=== PATIENT | female | born 1960 | race Caucasian/White ===

== ENCOUNTER 2021-07-04 10:16 | Emergency (ER) | payer BC ==
[2021-07-04] MEDS: Amoxicillin/Clavulanate K 875-125 MG Tab PO ONE (10:38)
--- NOTE | 2021-07-04 10:50 | EDM.PDOC ---
ED HPI GENERAL MEDICAL PROBLEM - General Stated Complaint: R HAND SWELLING Time Seen by Provider: 07/04/21 10:20 Source of Information: Reports: Patient History Limitations: Reports: No Limitations - History of Present Illness INITIAL COMMENTS - FREE TEXT/NARRATIVE: Patient comes emergency department today with complaints of a cat bite to her right hand. Yesterday this patient's cat who is up-to-date on its immunizations as well as the patient's tetanus that is up-to-date bit her on the right hand and the base of the thumb region. She cleansed it immediately last night. Today when she woke up she noticed quite a bit of swelling and redness to her hand. She denies any paresthesias. She has no fever or chills. She has no change in the functionality of her right hand at the joints nor sensation to the right hand. Right Hand Pain Score (Numeric/FACES): 2 - Related Data Allergies Allergy/AdvReac Type Severity Reaction Status Date / Time No Known Allergies Allergy Verified 07/04/21 11:33 Home Meds: Home Meds Aspirin 81 mg PO DAILY 10/21/18 [History] Cetirizine [ZyrTEC] 10 mg PO DAILY 10/21/18 [History] Escitalopram [Lexapro] 10 mg PO DAILY 10/21/18 [History] Montelukast [Singulair] 10 mg PO DAILY 10/21/18 [History] amLODIPine Besylate/Benazepril [Lotrel 5-40 MG] 1 cap PO DAILY 10/21/18 [History] atorvaSTATin [Lipitor] 10 mg PO DAILY 10/21/18 [History] Amoxicillin/Clavulanate K [Augmentin 875-125 MG] 1 tab PO BID #16 tab 07/04/21 [Rx] Past Medical History - Past Health History Medical/Surgical History: Denies Medical/Surgical History HEENT History: Reports: Other (See Below) Other HEENT History: Allergies, seasonal. Cardiovascular History: Reports: High Cholesterol, Hypertension Psychiatric History: Reports: Depression - Past Surgical History Musculoskeletal Surgical History: Reports: Carpal Tunnel Other Musculoskeletal Surgeries/Procedures:: left wrist, carpal tunnel. ED ROS GENERAL - Review of Systems Review Of Systems: Comprehensive ROS is negative, except as noted in HPI. ED EXAM, SKIN/RASH Exam: See Below Exam Limited By: No Limitations General Appearance: Alert, WD/WN, No Apparent Distress Respiratory/Chest: No Respiratory Distress Cardiovascular: Normal Peripheral Pulses, Regular Rate, Rhythm Peripheral Pulses: 2+: Radial (L), Radial (R) Extremities: Other (Rest of the hand is atraumatic and nonconcerning. There is some lymphangitis streaking up from the area of erythema. She is able to flex and extend at the wrist appropriately.). No: Normal Inspection (On the right hand at the metacarpal region of the thumb there is 2 small puncture wounds. Surrounding this area primarily on the dorsal surface is erythema induration and swelling that extends over to the second metacarpal region as well. There is some lymphangitis streaking up the arm. ) Neurological: Alert Skin: Warm, Dry, Intact Course - Vital Signs Last Recorded V/S: Last Vital Signs Temp 97.3 F 07/04/21 10:20 Pulse 63 07/04/21 10:20 Resp 16 07/04/21 10:20 BP 137/69 07/04/21 10:20 Pulse Ox 97 07/04/21 10:20 - Orders/Labs/Meds Meds: Medications Discontinued Medications Generic Name Dose Route Start Last Admin Trade Name Freq PRN Reason Stop Dose Admin Amoxicillin/Clavulanate Potassium 1 tab 07/04/21 10:34 07/04/21 10:38 Amoxicillin/Clavulanate K 875-125 Mg Tab PO 07/04/21 10:35 1 tab ONETIME ONE Administration - Re-Assessments/Exams Free Text/Narrative Re-Assessment/Exam: The patient's immunizations are up-to-date as well as the patient's CAT immunizations. We will start her on Augmentin 1 tablet p.o. 4 times daily for the next 7 days. The area of induration was outlined and if the cellulitic region starts to extend aggressively passes she needs to recheck in the emergency department or if she has any new or worsening symptoms. Discharge instructions as below are explained to the patient she was comfortable with this plan and her questions were answered. Departure - Departure Time of Disposition: 10:34 Disposition: Home, Self-Care 01 Clinical Impression: Cat bite of right hand with infection Qualifiers: Encounter type: initial encounter Qualified Code(s): S61.451A - Open bite of right hand, initial encounter - Discharge Information Prescriptions: Amoxicillin/Clavulanate K [Augmentin 875-125 MG] 1 tab PO BID #16 tab Instructions: Animal Bite, Adult, [id number] Referrals: Chacha Wilkinson DO [Primary Care Provider] - Forms: ED Department Discharge Additional Instructions: Augmentin 1 tablet by mouth twice daily for the next 7days. First dose given in the ED and RX sent to [facility] pharmacy. Tylenol and or ibuprofen as needed for pain discomfort. Watch for spreading of the redness outside the marked area. Contact the ED if worsening rapidly or new symptoms develop. Follow up with PCP in the next week if not improving sooner if worse. Make sure and drink plenty of fluids the next week while on the anti-biotics. Sepsis Event Note (ED) - Focused Exam Vital Signs: Vital Signs Temp Pulse Resp BP Pulse Ox 07/04/21 10:20 97.3 F 63 16 137/69 97
== END 2021-07-04 10:40 | disposition home or self-care (01) ==
LOC: VM.ED 10:16
DX: S61.451A Open bite of right hand, initial encounter (principal); L08.9 Local infection of the skin and subcutaneous tissue, unspecified; E78.00 Pure hypercholesterolemia, unspecified; I10 Essential (primary) hypertension; Z79.82 Long term (current) use of aspirin; Z23 Encounter for immunization; Z79.899 Other long term (current) drug therapy; W55.01XA Bitten by cat, initial encounter
CPT/HCPCS: 99283; A9270-GY